=== PATIENT | female | born 1995 | race Hispanic/Latino ===

== ENCOUNTER 2020-04-30 17:05 | Emergency (ER) | payer SELFPAY ==
[2020-04-30 18:31] LABS: Absolute Lymphocytes (CBC) 2.5 K/uL (0.7-4.9); Basophils % 0.7 % (0-1.3); Hematocrit 37.6 % (36.0-45.0); Lymphocytes % 24.5 % (15.3-44.8); MPV 9.4 fL (7.6-11.3); RBC Red Blood Cell Count 4.14 M/uL (3.86-4.86)
[2020-04-30 18:40] LABS: Urine Blood 2+ (NEG); Urine Glucose NEGATIVE (NEG); Urine Protein NEGATIVE (NEG); Urine Specific Gravity >1.030 (1.005-1.030)
[2020-04-30 19:06] LABS: BUN Blood Urea Nitrogen 7 mg/dL (7-18); Bicarbonate 25 mmol/L (21-32); Glucose Level 83 mg/dL (74-106); HCG, Quantitative 95785 mIU/mL (1-3); Potassium 3.6 mmol/L (3.5-5.1); Sodium Level 137 mmol/L (136-145)
[2020-04-30 20:01] VITALS: BP 107/61; TEMP 98; O2SAT 98
--- NOTE | 2020-04-30 21:38 | ER ---
Nurse's Notes [facility] Name: Misty Melvin Age: 24 yrs Sex: Female : 1995 Arrival Date: 04/30/2020 Time: 17:08 Bed 13 Private MD: Diagnosis: Threatened Presentation: 04/30 17:12 Chief complaint: Patient states: LMP: Jun10. Found last week she was . G2, P0. ll1 Started vaginal bleeding today, + cramping. N/V this morning. Coronavirus screen: Patient denies a cough. Patient denies shortness of breath or difficulty breathing. Patient denies measured and/or subjective temperature greater than 100.4F prior to today's visit. Patient denies travel on a cruise ship or to a country the [facility] currently lists as an affected area. Patient denies contact with known and/or suspected case of COVID-19. Proceed with normal triage. Ebola Screen: Patient denies travel to an Ebola-affected area in the 21 days before illness onset. Initial Sepsis Screen: Does the patient meet any 2 criteria? No. Patient's initial sepsis screen is negative. Risk Assessment: Do you want to hurt yourself or someone else? Patient reports no desire to harm self or others. Onset of symptoms was April 30, 2020. 17:12 Method Of Arrival: Ambulatory ll1 17:12 Acuity: SUBHASH 3 ll1 19:38 Initial Sepsis Screen: Does the patient have a suspected source of infection? No. mt2 Patient's initial sepsis screen is negative. Triage Assessment: 19:39 General: Appears Behavior is calm, cooperative. 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 - Social history:: Smoking status: Patient denies any tobacco usage or history of. Patient/guardian denies using alcohol, street drugs. Screenin:45 Abuse screen: Denies threats or abuse. Denies injuries from another. Nutritional jr10 screening: No deficits noted. Tuberculosis screening: No symptoms or risk factors identified. Fall Risk No fall in past 12 months (0 pts). No secondary diagnosis (0 pts). IV access (20 points). Ambulatory Aid- None/Bed Rest/Nurse Assist (0 pts). Gait- Normal/Bed Rest/Wheelchair (0 pts) Mental Status- Oriented to own ability (0 pts). Assessment: 17:45 Obstetrical Assessment: General assessment: awake and alert, skin warm and dry, jr10 respirations even and unlabored. General:. Pain: Denies pain. Neuro: No deficits noted. Cardiovascular: No deficits noted. Respiratory: No deficits noted. GI: No deficits noted. : Reports vaginal bleeding that is bright red, spotty, since this morning, reports that she is currently "one month and a day" , denies clotting. Does report previous miscarriage. Reports that she had blood work and urine testing today and was told that she has chlamydia; reports that she was treated today for the STD. Appears in NAD. Derm: No deficits noted. Musculoskeletal: No deficits noted. 19:31 Reassessment: Patient and/or family updated on plan of care and expected duration. Pain mt2 level reassessed. Patient denies pain at this time. Vital Signs: 17:12 BP 121 / 70; Pulse 85; Resp 17; Temp 98.6; Pulse Ox 100% ; Weight 51.71 kg; Height 5 ll1 ft. 1 in. (154.94 cm); Pain 1/10; 18:00 BP 109 / 66; Pulse 79; Resp 18; Pulse Ox 100% ; jr10 19:31 BP 107 / 61; Pulse 63; Resp 16; Temp 98.0(O); Pulse Ox 98% ; Pain 0/10; mt2 17:12 Body Mass Index 21.54 (51.71 kg, 154.94 cm) ll1 Vitals: 19:38 Heart Tones unable to palpate. mt2 ED Course: 17:08 Patient arrived in ED. mr 17:12 Arm band placed on Patient placed in an exam room, on a stretcher. ll1 17:14 Triage completed. ll1 17:14 Gilles Oates PA is PHCP. [facility] 17:14 Doni King MD is Attending Physician. [facility] 17:16 Lawanda Adames, LUIS is Primary Nurse. jr10 17:45 Patient has correct armband on for positive identification. Placed in gown. Bed in low jr10 position. Call light in reach. Side rails up X 1. Pulse ox on. NIBP on. 17:55 Initial lab(s) drawn, by me, held in ED. Inserted saline lock: 20 gauge in right jp3 antecubital area, using aseptic technique. Blood collected. 17:55 Patient maintains SpO2 saturation greater than 95% on room air. jp3 18:25 No apparent distress. Resting quietly. Awaiting lab results. jr10 19:15 Primary Nurse role handed off by Lawanda Adames, LIUS mt2 19:15 Zehra Connelly, LUIS is Primary Nurse. mt2 19:32 No provider procedures requiring assistance completed. IV discontinued, intact, mt2 bleeding controlled, No redness/swelling at site. Pressure dressing applied. 22:14 US Pelvis Complete In Process Unspecified. EDMS Administered Medications: No medications were administered Point of Care Testing: Urine : 18:26 hCG Reading: Positive; Control Reading: Positive; jr10 Outcome: 19:06 Discharge ordered by . devyn 19:32 Discharged to home ambulatory. mt2 19:32 Condition: good 19:32 Discharge instructions given to patient, Instructed on discharge instructions, follow up and referral plans. Demonstrated understanding of instructions, follow-up care. 19:43 Patient left the ED. mt2 Signatures: Dispatcher [employer] EDMS Gilles Oates PA PA jmm Rivera, Mary Christian Van jp3 Nixon Cates RN RN ll1 Zehra Connelly RN RN mt2 Lawanda Adames, LUIS RN jr10 Corrections: (The following items were deleted from the chart) 19:37 19:31 BP 126 / 91; Pulse 63bpm; Resp 16bpm; Pulse Ox 98%; Temp 98.0F Oral; Pain 0/10; mt2 mt2
--- NOTE | 2020-04-30 21:39 | EDPHYS ---
Physician Documentation [facility] Name: Misty Melvin Age: 24 yrs Sex: Female : 1995 Arrival Date: 04/30/2020 Time: 17:08 Bed 13 Private MD: ED Physician Doni King HPI: 04/30 17:15 This 24 yrs old Female presents to ER via Ambulatory with complaints of jmm Vaginal Bleeding, + Preg <12wks. 17:15 The patient presents to the emergency department with vaginal bleeding. Associated jmm signs and symptoms: Pertinent positives: vaginal bleeding, Pertinent negatives: vomiting. This is a 24 year old female with no chronic medical conditions presents to the ED with vaginal bleeding beginning today with pelvic cramping. Denies fever, vomiting. . 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 - Social history:: Smoking status: Patient denies any tobacco usage or history of. Patient/guardian denies using alcohol, street drugs. ROS: 17:15 Constitutional: Negative for fever, chills, and weight loss, Cardiovascular: Negative jmm for chest pain, palpitations, and edema, Respiratory: Negative for shortness of breath, cough, wheezing, and pleuritic chest pain. 17:15 : Positive for vaginal bleeding. 17:15 All other systems are negative. Exam: 17:15 Constitutional: This is a well developed, well nourished patient who is awake, alert, jmm and in no acute distress. Head/Face: atraumatic. Eyes: EOMI, no conjunctival erythema appreciated ENT: Moist Mucus Membranes Neck: Trachea midline, Supple Chest/axilla: Normal chest wall appearance and motion. Cardiovascular: Regular rate and rhythm. No edema appreciated Respiratory: Normal respirations, no respiratory distress appreciated Abdomen/GI: Non distended, soft Back: Normal ROM Skin: General appearance color normal MS/ Extremity: Moves all extremities, no obvious deformities appreciated, no edema noted to the lower extremities Neuro: Awake and alert, normal gait Psych: Behavior is normal, Mood is normal, Patient is cooperative and pleasant Vital Signs: 17:12 BP 121 / 70; Pulse 85; Resp 17; Temp 98.6; Pulse Ox 100% ; Weight 51.71 kg; Height 5 ll1 ft. 1 in. (154.94 cm); Pain 1/10; 18:00 BP 109 / 66; Pulse 79; Resp 18; Pulse Ox 100% ; jr10 19:31 BP 107 / 61; Pulse 63; Resp 16; Temp 98.0(O); Pulse Ox 98% ; Pain 0/10; mt2 17:12 Body Mass Index 21.54 (51.71 kg, 154.94 cm) ll1 MDM: 17:29 Patient medically screened. [facility] 19:05 Data reviewed: vital signs, nurses notes. Counseling: I had a detailed discussion with devyn the patient and/or guardian regarding: the historical points, exam findings, and any diagnostic results supporting the discharge/admit diagnosis, lab results, radiology results, the need for outpatient follow up, to return to the emergency department if symptoms worsen or persist or if there are any questions or concerns that arise at home. ED course: Patient is alert and non toxic in appearance in the ED. Patient advised to follow up with pcp and otherwise given strict return precautions. Patient understood and agrees with the plan of care. . 04/30 17:15 Order name: Quantitative Hcg; Complete Time: 19: [facility] 04/30 17:15 Order name: Abo/rh Typing; Complete Time: 19: [facility] 04/30 17:15 Order name: Basic Metabolic Panel; Complete Time: 19: [facility] 04/30 17:15 Order name: CBC with Diff; Complete Time: 19: [facility] 04/30 18:19 Order name: Urine Dipstick--Ancillary (enter results); Complete Time: 19: [facility] 04/30 18:19 Order name: Urine --Ancillary (enter results); Complete Time: 19:04 [facility] 04/30 17:15 Order name: Urine Test (obtain specimen); Complete Time: 18:19 [facility] 04/30 17:15 Order name: IV Saline Lock; Complete Time: 18:00 [facility] 04/30 17:15 Order name: Labs collected and sent; Complete Time: 18:00 [facility] 04/30 17:15 Order name: NPO; Complete Time: 18:00 [facility] 04/30 17:15 Order name: Urine Dipstick-Ancillary (obtain specimen); Complete Time: 18:19 [facility] 04/30 18:07 Order name: US Pelvis Complete [facility] Administered Medications: No medications were administered Point of Care Testing: Urine : 18:26 hCG Reading: Positive; Control Reading: Positive; jr10 Disposition: 04/30/20 19:06 Discharged to Home. Impression: Threatened . - Condition is Stable. - Discharge Instructions: Threatened Miscarriage. - Medication Reconciliation Form, Thank You Letter, Antibiotic Education, Prescription Opioid Use, Work release form form. - Follow up: Private Physician; When: 2 - 3 days; Reason: Recheck today's complaints, Continuance of care, Re-evaluation by your physician. - Notes: return to work on 05/02/2020 No restrictions. Addendum: 05/02/2020 23:05 Co-signature as Attending Physician, Doni King MD. r n Signatures: Dispatcher [employer] EDMS Gilles Oates PA PA jmm Nieto, Roman, MD MD rn Lewis, Lynsay, RN RN ll1 Zehra Connelly RN RN mt2 Lawanda Adames RN RN jr10 Corrections: (The following items were deleted from the chart) 04/30 19:43 19:06 04/30/2020 19:06 Discharged to Home. Impression: Threatened . Condition mt2 is Stable. Forms are Medication Reconciliation Form, Thank You Letter, Antibiotic Education, Prescription Opioid Use. Follow up: Private Physician; When: 2 - 3 days; Reason: Recheck today's complaints, Continuance of care, Re-evaluation by your physician. [facility]
--- NOTE | 2020-04-30 22:26 | RAD REPORT ---
EXAM DESCRIPTION: US - Pelvis Complete - 04/30/2020 10:14 pm CLINICAL HISTORY: VAGINAL BLEEDING Pelvic pain COMPARISON: No comparisons FINDINGS: A single gestational sac is seen within the uterus. The shape of the sac is within normal limits for gestational age. Within the sac is a single pole with crown-rump length of 9 mm, cor relating to estimated gestational age of 6 weeks 6 days. Estimated date of delivery is 12/18/2020. Heart rate is 137 BPM. The placenta is not yet developed due to early gestational age. Small crescentic subchorionic bleed i s present measuring 17 x 13 mm. The maternal adnexa and ovaries are within normal limits. Normal Doppler blood flow was demonstrated to both ovaries. IMPRESSION: Single live early intrauterine gestation with estimated gestational age of 6 weeks 6 day s, CALLI 12/18/2020. Small subchorionic bleed.
--- OUTSIDE RECORDS SUMMARY | 2020-04-30 22:43 | XMS REPORT | Summary of Care ---
:1995 Author Organization [facility] - Health Address [address] [place] [address] Care Team Providers Name Role Phone Unavailable Primary Care Provider Unavailable Encounter Details Date Type Department Care Team Description 04/26/2020 Orders Only [facility] Doctor Unassigned, No [address] [facility] [place] [address] [address] [place] [address] Allergies No Known Allergiesdocumented as of this encounter (statuses as of 04/26/2020) Medications Medication Sig Dispensed Refills Start Date End Date Status Nitrofurantoin&Nit. Take 100 mg by 0 Active Macrocryst (MACROBID) mouth 2 (two) 100 mg times daily. capsuleIndications: Urinary tract infection, site not specified vitamin w/FA Take 1 Tab by 90 Tab 2 05/17/2015 Active (PRENATABS RX) mouth daily. 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 documented as of this encounter (statuses as of 04/26/2020) Resolved Problems Problem Noted Date Resolved Date PLANNING (Other general counseling and advice for 11/07/2014 05/17/2015 contraceptive management) Chlamydia trachomatis infection of lower genitourinary sites 11/07/2014 05/17/2015 Vaginitis and vulvovaginitis 08/09/2014 11/07/2014 Overview: ICD10 Diagnosis Term Hand Sprayer Utility Counseling and instruction in natural family planning to lexa id 08/09/2014 11/07/2014 documented as of this encounter (statuses as of 04/26/2020) Immunizations Name Administration Dates Next Due HEPATITIS A 07/28/2007 HPV 07/28/2007 Meningococcal Vaccine 07/28/2007 TDAP 10/05/2008 documented as of this encounter Social History Tobacco Use Types Packs/Day Years Used Date Never Smoker Smokeless Tobacco: Never Used Alcohol Use Drinks/Week oz/Week Comments Yes 0 Standard drinks or equivalent 0.0 socially Sex Assigned at Date Recorded Not on file Job Start Date Occupation Industry Not on file Not on file Not on file Travel History Travel Start Travel End No recent travel history available. documented as of this encounter Last Filed Vital Signs Not on filedocumented in this encounter Plan of Treatment Date Type Specialty Care Team Description 04/26/2020 Initial Visit [facility] Criss Leal, TELLER [address] [id number] 15 [phone] Health Maintenance Due Date Last Done Comments VARICELLA VACCINES (1 of 2 - 1995 2-dose childhood series) Depression Screening 2006 HPV VACCINES (2 - Female 2-dose 01/27/2008 07/28/2007 series) PAP SMEAR 2015 DTaP,Tdap,and Td Vaccines (2 - Td) 10/05/2018 10/05/2008 INFLUENZA VACCINE (#1) 2020 PNEUMOCOCCAL 0-64 YEARS COMBINED Aged Out No longer eligible based on SERIES patient's age to complete this topic documented as of this encounter Procedures Procedure Name Priority Date/Time Associated Diagnosis Comme nts ASSIGNMENT OF BENEFITS Routine 04/26/2020 9:07 AM CDT documented in this encounter Results Not on filedocumented in this encounter Insurance Payer Benefit Plan / Subscriber ID Effective Dates Phone Addre ss Type Group [employer] [id number] 2015-Present [employer] CHOICE documented as of this encounter
--- OUTSIDE RECORDS SUMMARY | 2020-04-30 22:43 | XMS REPORT | Summary of Care ---
:1995 [address] Organization [facility] Address [address] [place] [address] Care Team Providers Name Role Phone Samuel Leal Primary Care Provider Reason for Visit Reason Comments New OB Visit Encounter Details Date Type Department Care Team Description 04/26/2020 Initial [facility] RMP- Samuel Leal upervision of high risk , antepartum (Primary Dx); Visit AMBER Pickard History of miscarriage, currently pregna nt; [address] Primigrav nataly in first trimester; [address] Nausea and vomiting during faby or to 22 weeks [place] [id number] [phone] Allergies No Known Allergiesdocumented as of this encounter (statuses as of 04/26/2020) Medications Medication Sig Dispensed Refills Start Date End Date Status Nitrofurantoin&Nit Take 100 mg 0 Discontinued . Macrocryst by mouth 2 0 (MACROBID) 100 mg (two) times capsuleIndications daily. : Urinary tract infection, site not specified vitamin Take 1 Tab by 90 Tab 2 05/17/2015 04/26/20 2 Discontinued w/FA (PRENATABS mouth daily. 0 RX) tabletIndications: Supervision of other high-risk (V23.89) vit Take 1 Packet 30 Each 6 04/26/2020 Di scontinued 31-nfhz-jmgoj-dha by mouth 0 (E rror) (SELECT-OB + DHA) daily. 29 mg iron-1 mg -250 mg combo packIndications: Supervision of high risk , antepartum vit Take 1 Packet 30 Each 6 04/26/2020 Di scontinued 84-jnrn-tzkzm-dha by mouth 0 (E rror) (SELECT-OB + DHA) daily. 29 mg iron-1 mg -250 mg combo packIndications: Supervision of high risk , antepartum proMETHazine 25 mg Take 1 tablet 30 tablet 1 04/26/2020 Discontinued tabletIndications: by mouth 0 ( Error) Nausea and every 4 vomiting during (four) hours prior to as needed for 22 weeks gestation Nausea and Vomiting (N/V). 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 Estimated Date of Delivery Comments Yes 12/19/2020 documented as of this encounter (statuses as of 04/26/2020) Resolved Problems Problem Noted Date Resolved Date Urinary tract infection, site not specified 05/17/2015 04/26/2020 Chlamydia trachomatis infection of lower genitourinary sites 05/17/2015 04/26/2020 PLANNING (Other general counseling and advice for 11/07/2014 05/17/2015 contraceptive management) Chlamydia trachomatis infection of lower genitourinary sites 11/07/2014 05/17/2015 Vaginitis and vulvovaginitis 08/09/2014 11/07/2014 Overview: ICD10 Diagnosis 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 COVID-19 Exposure Response Date Recorded In the last month, have you been in contact with No / Unsure 04/26/2020 9:39 AM CDT someone who was confirmed or suspected to have Coronavirus / COVID-19? documented as of this encounter Last Filed Vital Signs Vital Sign Reading Time Taken Comments Blood Pressure 110/78 04/26/2020 9:43 AM CDT Pulse 73 04/26/2020 9:43 AM CDT Temperature 36.9 C (98.4 F) 04/26/2020 9:43 AM CDT Respiratory Rate 16 04/26/2020 9:43 AM CDT Oxygen Saturation - - Inhaled Oxygen Concentration - - Weight 51.9 kg (114 lb 7 oz) 04/26/2020 9:43 AM CDT Height 154.9 cm (5' 1") 04/26/2020 9:43 AM CDT Body Mass Index 21.62 04/26/2020 9:43 AM CDT documented in this encounter Patient Instructions Patient InstructionsSacha Calderon, LUIS - 04/26/2020 9:45 AM CDT Patient Education Prevention Guidelines,Women Ages 18 to 39 Screening tests and vaccines are an important part of managing your health. A screening test is doneto find possible disorders or diseases in people who don't have any symptoms. The goal is to find a disease early so lifestyle changes can be made and you can be watched more closely to reduce the riskof disease, or to detect it early enough to treat it most effectively. Screening tests are not considered diagnostic, but are used to determine if more testing is needed. Health counseling is essential, too. Below are guidelines for these, for women ages 18 to 39. Talk with your healthcare provider tomake sure youre up-to-date on what you need. Screening Who needs it How often Alcohol misuse All women in this age group At routine exams Blood pressure All women in this age group Yearly checkup if your blood pressure is normal Normal blood pressure is less than 120/80 mm Hg If your blood pressure reading is higher than normal, follow the advice of your healthcare provider Breast cancer All women in this age group should talk with their healthcare providers about the needfor clinical breast exams (CBE)1 Clinical breast exam every 3 years1 Cervical cancer Women ages 21 and older Women between ages 21 and 29 should have a Pap test every 3 years; women between ages 30 and 65 are advised to have a Pap test plus an HPV test every 5 years Chlamydia Sexually active women ages 25 and younger, and women at increased risk for infection (suchas having multiple sex partners) Every year if you're at risk or have symptoms Depression All women in this age group At routine exams Type 2 diabetes, prediabetes All women with no symptoms who are overweight or obese and have 1 or more other risk factors for diabetes At least every 3 years. Also, testing for diabetes during after the 24th week. Type 2 diabetes, prediabetes All women diagnosed with gestational diabetes Lifelong testing every 3 years Type 2 diabetes All women with prediabetes Every year Gonorrhea Sexually active women at increased risk for infection At routine exams Hepatitis C Anyone at increased risk At routine exams HIV All women should be tested at least once for HIV between the ages of 13 and 64 At routine exams.Those with risk factors for HIV should be tested at least annually. Obesity All women in this age group At routine exams Syphilis Women at increased risk for infection should talk with their healthcare provider At routineexams Tuberculosis Women at increased risk for infection should talk with their healthcare provider Ask your healthcare provider Vision All women in this age group At least 1 complete exam in your 20s, and 2 in your 30s Vaccine2 Who needs it How often Chickenpox (varicella) All women in this age group who have no record of this infection or vaccine 2doses; the second dose should be given 4 to 8 weeks after the first dose Hepatitis A Women at increased risk for infection should talk with their healthcare provider 2 dosesgiven at least 6 months apart Hepatitis B Women at increased risk for infection should talk with their healthcare provider 3 dosesover 6 months; second dose should be given 1 month after the first dose; the third dose should be given at least 2 months after the second dose and at least 4 months after the first dose Haemophilus influenzaeType B (HIB) Women at increased risk for infection should talk with their healthcare provider 1 to 3 doses Human papillomavirus (HPV) All women in this age group up to age 26 3 doses; the second dose should be given 1 to 2 months after the first dose and the third dose given 6 months after the first dose Influenza (flu) All women in this age group Once a year Measles, mumps, rubella (MMR) All women in this age group who have no record of these infections or vaccines 1 or 2 doses Meningococcal Women at increased risk for infection should talk with their healthcare provider 1 or more doses Pneumococcal conjugate vaccine (PCV13)and pneumococcal polysaccharidevaccine(PPSV23) Women at increased risk for infection should talk with their healthcare provider PCV13: 1 dose ages 19 to 65 (protects against 13 types of pneumococcal bacteria) PPSV23: 1 to2 doses through age 64, or 1 dose at 65 or older (protects against 23 types of pneumococcal bacteria) Tetanus/diphtheria/pertussis (Td/Tdap) booster All women in this age group Td every 10 years, or a one-time dose of Tdap instead of a Td booster after age 18, then Td every 10 years Counseling Who needs it How often BRCA gene mutation testing for breast and ovarian cancer susceptibility Women with increased risk for having gene mutation When your risk is known Breast cancer and chemoprevention Women at high risk for breast cancer When your risk is known Diet and exercise Women who are overweight or obese When diagnosed, and then at routine exams Domestic violence Women at the age in which they are able to have children At routine exams Sexually transmitted infection prevention Women who are sexually active At routine exams Skin cancer Prevention of skin cancer in fair-skinned adults At routine exams Use of tobacco and the health effects it can cause All women in this age group Every visit 1 According to the ACS, women ages 20 to 39 years should have a clinical breast exam (CBE) as part of their routine health exam every 3 years. Breast self-exams are an option for women starting in their 20s.But the USPSTF does not recommend CBE. [employer] last reviewed this educational content on 07/05/201719995467-5719 [employer]. [address] [place] [address], [place] [address]. All rights reserved. This information is not intended as a substitute for professional medical care. Always follow your healthcare professional's instructions. Patient Education Understanding STIs When it comes to sex, nothing is risk-free. Any sexual contact with the penis, vagina, anus, or mouth can spread a sexually transmitted infection (STI). These include chlamydia, gonorrhea, herpes, HIV,and genital warts. STIs are also known as sexually transmitted diseases (STDs). The only sure way toprevent STIs is not having sex (abstinence). But there are ways to make sex safer. Use a latex condom each time you have sex. And choose your partner wisely. Use condoms for safer sex If you have sex, latex condoms provide the best protection against STIs. Latex condoms stop the exchange of body fluids that carry certain STIs. They also limit contact with affected skin. Be aware that a condom doesnt cover all skin. So affected skin that isn't covered can still transfer disease. But youre safer with a condom than without one. Use a condom even if you use other control. control methods such as the pill or IUD help prevent , but they don't protect against STIs. Choose the right condom Condoms made of latex prevent disease best. If youre allergic to latex, use polyurethane condoms instead. Male condoms fit over the penis. Female condoms line the vagina. Before buying a condom, read the label to be sure it prevents disease. Some novelty condoms dont. The right lubricant helps Buy lubricated condoms or use lubricant. This provides greater comfort and reduces the risk for condom breakage. Use only water-based lubricants. Dont use oil, lotion, or petroleum jelly. They can weaken the condom, causing breakage. Also, you may want to choose lubricants without nonoxynol-9. This spermicide may cause irritation. It can raise the risk for certain STIs. Use condoms correctly For condoms to work, they must be used the right way. Keep these tips in mind: Use a new latex condom each time you have sex. Slip the condom on the penis before any contact ismade. When ready to withdraw, hold the rim of the condom as the penis pulls out. This prevents the condom from slipping off. Check the expiration date before using a condom. Dont store condoms in places that can get hot, such as a car or a wallet that is carried in a back pocket. Get to know your partner Safer sex is a process. It involves getting to know your partner and making informed choices. Ask each other how many partners you have had in the past, and how many you have now. Find out if either ofyou has HIV or any other STI. If you decide to have sex, use a condom each time. Dont stop using condoms unless youre sure neither of you has other partners and youve both been tested to confirm you dont have HIV or other STIs. Then stay free of disease by having sex only with each other (monogamy). Keep your cool Dont let alcohol or drugs cloud your judgment. They could lead you to have sex with someone you wouldnt have chosen if you were sober. Or you might forget to use a condom. If you do plan to have sex, keep a latex condom with you. Dont wait until youre in the heat of passion to try to find one. Consider abstinence The only way to be sure you wont get an STI is to abstain from sex. Abstinence is a choice that many people make at some point in their life. Maybe you want to wait until you are sure youre readybefore you have sex. Maybe youd like a break from the responsibilities of sex for a while. Or maybe you just want to know your partner better before taking the next step. Abstinence is a choice you can make now to protect your future. [employer] last reviewed this educational content on 09/04/201819990305-4490 [employer]. [address] [place] [address], [place] [address]. All rights reserved. This information is not intended as a substitute for professional medical care. Always follow your healthcare professional's instructions. Patient Education Understanding HIV and AIDS It's important to know how HIV can get into your body and what happens once its there. Then youll be better prepared to protect yourself or others against this virus. A person with HIV can look and feel perfectly healthy. But that person can give HIV to others as soon as he or she is infected with the virus. Having unsafe or unprotected sex or sharing needles puts you at risk for HIV. Talk with your healthcare provider about ways to protect yourself or a loved one from getting HIV. How HIV infection progresses After HIV enters the body, it attacks the immune system in the stages below. A person with HIV can infect others once the virus gets into the blood. HIV with no symptoms. A person with HIV may have no symptoms for years. The only sign of infection may be a positive blood test for HIV 2 weeks to 3 months or later after HIV enters the body. HIV with symptoms. Some people develop an illness similar to mono (mononucleosis) 2 to 4 weeks after the virus enters the body. This is called acute retroviral syndrome. Symptoms may include swollen lymph glands, chills, fever, night sweats, weakness, weight loss, skin rashes, mouth ulcers, or sore t hroat. Symptoms may be mild or the person can feel quite sick. Even without treatment the symptoms almost always go away in a few days or up to 2 to 3 weeks. Then the person has no symptoms, often for years. But over time the immune system starts to get weaker and symptoms start appearing. People at this stage may have a yeast infection in the mouth (oral thrush), shingles, skin problems, pneumonia, diarrhea that keeps coming back, or weight loss. AIDS. AIDS is the most advanced stage of HIV infection, when the immune system is severely weakened.Certain rare diseases and cancers that normally would not occur, now can occur because the body can no longer fight them well enough. It is often these diseases that cause in people with AIDS. HIV may also directly attack the brain and nervous system. This causes seizures and loss of memory and body movement. It also affects many other parts of the body. This leads to problems such as anemia, low white blood cell count, diarrhea, belly pain, skin problems, and many others. How HIV enters the body HIV is carried in semen, vaginal fluid, blood, and breastmilk. During sex, HIV can enter the body. It gets in through the fragile tissue and linings, sores, or cuts in or around the vagina, penis, anus, and mouth. During drug use, tattooing, or body piercing, the virus can enter the blood through an infected needle. A mother who has HIV can infect her child during , childbirth, and . [employer] last reviewed this educational content on 03/05/201919990021-7360 [employer]. [address] [place] [address], [place] [address]. All rights reserved. This information is not intended as a substitute for professional medical care. Always follow your healthcare professional's instructions. Patient Education Clinical Breast Exam Many health organizations recommend a yearly clinical breast exam. This exam may be done by a chemist inorganic, family healthcare provider, nurse practitioner, nurse mat inspector, or specially trained nurse. Yearly breast exams help tomake surethat breast conditions are found early. Your healthcare providers role A healthcare professional knows the tests and follow-up care needed if a problem is found. Your clinical exam is also a great time to ask questions about breast self-exams. You can find out if yourechecking your breasts in the best way. Or you may want to ask how , breast implants, or breast reduction surgery affect the way you should check your breasts. Diagnostic tests If a clinical exam reveals a breast change, you may have other tests to find out more. These tests may include: Mammography. A low-dose X-ray of your breast tissue. Ultrasound. An imaging test that uses sound waves to create images of your breast. Biopsy. A small amount of breast tissue is removed by needle or by a cut (incision). The tissue is then checked under a microscope. Guidelines for having clinical breast exams The [employer] recommends that starting at age 29, you should have a clinical breast exam every 1 to 3 years. After age 40, have a clinical breast exam each year. If youre at higher risk for breast cancer, you may need exams more often. Risk factors for breast cancer may include: Being over 50 or postmenopausal Having a family history of breast cancer Having the BRCA1 or BRCA2 gene mutation or certain other gene mutations Having more menstrual periods due to starting menstruation early(before age 12) or having a late menopause (after age 55) Having no pregnancies Having a first after age 30 Being obese Having a history of radiation treatment to your chest area Exposure to ROSEMARY during your mother's Not being active Drinking too much alcohol Having dense breast tissue Taking hormone therapy after menopause Other health organizations have different recommendations. Talk with your healthcare provider about what is best for you. [employer] last reviewed this educational content on 05/05/201719993338-2992 [employer]. [address] [place] [address], [place] [address]. All rights reserved. This information is not intended as a substitute for professional medical care. Always follow your healthcare professional's instructions. Patient Education Breast Health: Breast Self-Awareness What is breast self-awareness? Breast self-awareness is knowing how your breasts normally look and feel. Your breasts change as yougo through different stages of your life. So its important to learn what is normal for your breasts. Knowing about your breasts helps you spot any changes in them right away. Tell your healthcare provider about any changes. Why is breast self-awareness important? Many experts now say that women should focus on breast self-awareness instead of doing a breast self-examination (BSE). These experts include the [employer] and the [employer]. Some experts even advise not teaching women to do a BSE. Thats because research hasnt shown a clear benefit to doing BSEs. Breast self-awareness is different than a BSE. It isnt about following a certain method and schedule. Its about knowing what's normal for your breasts. That way you can spot even small changes right away. If you see any changes, tell your healthcare provider. Changes to look for Call your healthcare provider if you find any changes in your breasts that worry you. These changes may be: A lump Nipple discharge other than breastmilk, especially if it's bloody Swelling A change in size or shape Skin changes, such as redness, thickening, or dimpling of the skin Swollen lymph nodes in the armpit Nipple problems, such as pain or redness If you find a lump Call your provider if you find lumpiness in one breast. Also call if you feel something different inthe tissue or feel a definite lump. Sometimes lumpiness may be due to menstrual changes. But there may be reason for concern. Your provider may want to see you right away if you have: Nipple discharge that is bloody Skin changes on your breast, such as dimpling or puckering Its okay to be upset if you find a lump. Be sure to call your provider right away. Remember that most breast lumps are benign. This means they are not cancer. [employer] last reviewed this educational content on 05/05/201719996053-8289 [employer]. [address] [place] [address], [place] [address]. All rights reserved. This information is not intended as a substitute for professional medical care. Always follow your healthcare professional's instructions. Patient Education Understanding USDA MyPlate The USDA (U.S. Department of Agriculture) has guidelines to help you make healthy food choices. These are called MyPlate. MyPlate shows the food groups that make up healthy meals using the image of a place setting. Before you eat, think about the healthiest choices for what to put onto your plate or into your cup or bowl. To learn more about building a healthy plate, visit www.choosemyplate.gov. The food groups Fruits. Any fruit or 100% fruit juice counts as part of the Fruit Group. Fruits may be fresh, canned, frozen, or dried, and may be whole, cut-up, or pureed. Make half your plate fruits and vegetables. Vegetables. Any vegetable or 100% vegetable juice counts as a member of the Vegetable Group. Vegetables may be fresh, frozen, canned, or dried. They can be served raw or cooked and may be whole, cut-up, or mashed. Make half your plate fruits and vegetables. Grains. All foods made from grains are part of the Grains Group. These include wheat, rice, oats,cornmeal, and barley such as bread, pasta, oatmeal, cereal, tortillas, and grits. Grains should be no more than a quarter of your plate. At least half of your grains should be whole grains. Protein. This group includes meat, poultry, seafood, beans and peas, eggs, processed soy products(like tofu), nuts (including nut butters), and seeds. Make protein choices no more than a quarter ofyour plate. Meat and poultry choices should be lean or low fat. Dairy. All fluid milk products and foods made from milk that contain calcium, like yogurt and cheese, are part of the Dairy Group. (Foods that have little calcium, such as cream, butter, and cream cheese, are not part of the group.) Most dairy choices should be low-fat or fat-free. Oils. These are fats that are liquid at room temperature. They include canola, corn, olive, soybean, and sunflower oil. Foods that are mainly oil include mayonnaise, certain salad dressings, and soft margarines. You should have only 5 to 7 teaspoons of oils a day. You probably already get this muchfrom the food you eat. [employer] last reviewed this educational content on 05/05/201719995519-8242 [employer]. [address] [place] [address]. All rights reserved. This information is not intended as a substitute for professional medical care. Always follow your healthcare professional's instructions. documented in this encounter [employer] Leal, Roshunda R, WOOD VENEER TAPER - 04/26/2020 9:45 AM CDT Chief complaint: Chief Complaint Patient presents with New OB Visit HPI CC: Initial Visit Misty Melvin is a 24 year old, , /White female. Patient's last menstrual period was 03/14/2020 (approximate). She is 6w1d with an intrauterine . Her Estimated Date of Delivery: 12/19/20. She is being seen today for her first obstetrical visit. Patient complains of nausea andvomiting. .Patient denies current or past physical, sexual or emotional abuse. OB History Para Term AB Living 2 1 SAB TAB Ectopic Multiple Live Births 1 # Outcome Date GA Lbr Wilmar/2nd Weight Sex Delivery Anes PTL Lv 2 Current 1 SAB Histories OB History Para Term AB Living 2 1 SAB TAB Ectopic Multiple Live Births 1 # Outcome Date GA Lbr Wilmar/2nd Weight Sex Delivery Anes PTL Lv 2 Current 1 SAB Past Medical History: Diagnosis Date Chlamydia trachomatis infection of lower genitourinary sites 11/07/2014 STD (sexually transmitted disease) 2014 Chlamydia Vaginitis and vulvovaginitis, unspecified 08/09/2014 Family History Problem Relation Age of Onset Arthritis NoFHx Asthma NoFHx defects NoFHx Colon Cancer NoFHx Breast Cancer NoFHx Ovarian Cancer NoFHx Cancer NoFHx Uterine Cancer NoFHx Depression NoFHx Diabetes NoFHx Genetic NoFHx Heart NoFHx Hypertension NoFHx High cholesterol NoFHx Mental retardation NoFHx Neurological NoFHx Osteoporosis NoFHx Psychiatry NoFHx Other - see comments NoFHx Family Status Relation Name Status NoFHx (Not Specified) History reviewed. No pertinent surgical history. Social History Socioeconomic History Marital status: Single Spouse name: Not on file Number of children: Not on file Years of education: Not on file Highest education level: Not on file Occupational History Not on file Social Needs Financial resource strain: Not on file Food insecurity: Worry: Not on file Inability: Not on file Transportation needs: Medical: Not on file Non-medical: Not on file Tobacco Use Smoking status: Never Smoker Smokeless tobacco: Never Used Substance and Sexual Activity Alcohol use: Yes Alcohol/week: 0.0 standard drinks Comment: socially Drug use: No Sexual activity: Yes Partners: Male control/protection: None Comment: Last sexual intercourse 04/19/2020 Lifestyle Physical activity: Days per week: Not on file Minutes per session: Not on file Stress: Not on file Relationships Social connections: Talks on phone: Not on file Gets together: Not on file Attends yarsanism service: Not on file Active member of club or organization: Not on file Attends meetings of clubs or organizations: Not on file Relationship status: Not on file Intimate partner violence: Fear of current or ex partner: Not on file Emotionally abused: Not on file Physically abused: Not on file Forced sexual activity: Not on file Other Topics Concern Not on file Social History Narrative Pt lives with boyfriend. Family has a dog. Patient denies any violence or domestic abuse. Social History Substance and Sexual Activity Sexual Activity Yes Partners: Male control/protection: None Comment: Last sexual intercourse 04/19/2020 Genetic Screen Autism / Mental Retardation: No Marcelino Disease: No Congenital Heart Defect: No Cystic Fibrosis: No Down Syndrome: No Familial Dysautonomia: No Hemophilia or other Blood Disorders: No Rubia Chorea: No Maternal Metabolic Disorder--specify (eg. Type 1 Diabetes, PKU): No Muscular Dystrophy: No Neural Tube Defect: No Recurrent Loss or a Stillbirth: No Sickle Cell Disease or Trait: No Nhan Sachs: No Teratological Substances (specify type & strength/dose) since LMP: No Thalassemia: No Other Inherited Genetic or Chromosomal Disorder (specify): No No Significant History of Genetic Disorders: No Significant History of Genetic Disorders Labs Labs are pending. Radiology No new radiology. Allergies Misty has No Known Allergies. Medications Misty currently has no medications in their medication list. Review of Systems Constitutional: Negative for activity change, appetite change, fatigue, unexpected weight change, weight gain and weight loss. HENT: Negative for sore throat. Eyes: Negative for visual disturbance. Respiratory: Negative for cough and shortness of breath. Breasts: Negative for discharge, mass, pain and unequal size. Cardiovascular: Negative for chest pain, palpitations and leg swelling. Gastrointestinal: Positive for nausea and vomiting. Negative for abdominal pain, anal bleeding, blood in stool, constipation, diarrhea and rectal pain. Genitourinary: Negative for bladder incontinence, dysuria, urgency, flank pain, vaginal bleeding, vaginal discharge, genital sores, vaginal pain and pelvic pain. Skin: Negative for color change and rash. Neurological: Negative. Negative for dizziness, syncope and headaches. Psychiatric/Behavioral: Negative for confusion, self-injury and sleep disturbance. The patient is not nervous/anxious. Hematological: Negative for cold intolerance and heat intolerance. Endocrine: Negative for hair loss, cold intolerance, heat intolerance, weight gain and weight loss. BP 110/78 (BP Location: Right arm, Patient Position: Sitting, BP CUFF SIZE: Adult Medium) | Pulse 73 | Temp 36.9 C (98.4 F) (Oral) | Resp 16 | Ht 5' 1" (1.549 m) | Wt 114 lb 7 oz (51.9 kg) | LMP 03/14/2020 (Approximate) | BMI 21.62 kg/m Pregravid BMI: 21.6 Physical Exam Vitals reviewed. Constitutional: She is oriented to person, place, and time. She appears well- developed, well-nourished and well-groomed. She has no deformities. Neck: No tenderness and no mass. No thyroid nodules and no thyromegaly palpated. Cardiovascular: Regular rate and rhythm. No murmur auscultated. Pulmonary/Chest: Breath sounds clear to auscultation. Normal inspiratory effort. Abdominal: Abdomen is soft. No mass palpated. No tenderness present. There is no guarding. Neuro/Psychiatric: She has a normal mood and affect. She is oriented to person, place, and time. Skin: Skin normal. No lesion and no rash present. Breast: Right breast exhibits no mass, no nipple discharge and no tenderness. Left breast exhibits no mass, no nipple discharge and no tenderness. Normal left breast and normal right breast Rectal: normal rectum External genitalia: Normal external genitalia appropriate for age. Normal hair distribution. No labial lesion. 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 No lesion inspected. No abnormal vaginal discharge found. Cervix: Normal cervix. No lesion. No tenderness and no discharge present. Uterus: Uterus is normal size and non-tender. 6cm Normal uterus Adnexa: Right adnexa without tenderness or mass. Left adnexa without tenderness or mass. Normal leftadnexa and normal right adnexa Anus/perineum: Normal perineum. PHYSICAL: General Exam: HEENT: Normal Thyroid: Normal Lymph Node: Normal Neurological: Normal Abdomen: Normal Skin: Normal Extremities: Normal Pelvic Exam: Vulva: Normal Vagina: Normal Cervix: Normal 6cm Uterus: 6cm Weeks Adnexa: Normal Spines: Average Sacrum: Concave Subpubic Arch: Normal Assessment/Plan Supervision of high risk , antepartum (primary encounter diagnosis) History of miscarriage, currently Primigravida in first trimester Comment: Routine Initial NOB Plan: POCT URINALYSIS W SPECIFIC GRAVITY, POCT TEST, POCT URINALYSIS W SPECIFIC GRAVITY, GLUCOSE 1 HOUR POST PRANDIAL, PAP Smear-Liquid Based, CBC WITH DIFF, GC & CHLAMYDIA AMPLIFIED ASSAY, HEPATITIS B SURFACE ANTIGEN, HIV 1/2 AG-AB WITH REFLEX, POCT URINALYSIS W SPECIFIC GRAVITY, WORKUP, BLOOD BANK, RUBELLA SCREEN (KATE) IGG, GALV ONLY - SYPHILIS IGG/IGM, URINE CULTURE, VZV ANTIBODY SCREEN, WORKUP, BLOOD BANK, GLUCOSE 1 HOUR POST PRANDIAL, PAP Smear-Liquid Based, CBC WITH DIFF, GC & CHLAMYDIA AMPLIFIED ASSAY, HEPATITIS B SURFACE ANTIGEN, HIV 1/2 AG-AB WITH REFLEX, RUBELLA SCREEN (KATE) IGG, GALV ONLY - SYPHILIS IGG/IGM, URINE CULTURE, VZV ANTIBODY SCREEN, DISCONTINUED: vit 76-tzkc-fonlu-dha (SELECT-OB + DHA) 29 mg iron-1 mg -250 mg combo pack, DISCONTINUED: vit 69-uzmn-ouobk-dha (SELECT-OB + DHA) 29 mg iron-1 mg -250 mg combo pack, CANCELED: CONSULT MATERNAL MEDICINE ULTRASOUND Preferred Location: [place] Denies zika virus risk, signs and symptoms such as fever,rash,joint pain, conjunctivitis (red eyes), muscle pain, headaches; outside [place] travel to areas affected by zika, and FOB exposure to zika.Educated on use of mosquito repellent. Covid x12 screening done, screening results are negative. Nausea and vomiting during prior to 22 weeks gestation Comment: patient complains of symptoms, rescources given for relief Plan: DISCONTINUED: proMETHazine 25 mg tablet Return to clinic in 4 weeks. Discussed treatment options. Medications as ordered. Reviewed patient instructions and provided printed copy. This visit did not involve counseling and coordination that comprised more than 50% of the visit time. AMBER Wilson 04/26/2020 11:46 AM Sacha Calderon RN - 04/26/2020 9:45 AM CDTPatient is 24 year old female here for current . Patient is . 1) Previous delivery methods N/a 2) Patient is mild experiencing cramping 3) Patient is not experiencing bleeding. 4) LMP 03/14/2020 5) Last Pap was: N/a Results: none 6) Have you had a flu vaccine this season? no 7) PPD candidate? no 8) Patient complains of Nausea. 9) Patient denies history of physical, emotional, or sexual abuse. Patient states she currently feels safe at home. documented in this encounter Plan of Treatment Date Type Specialty Care Team Description 05/24/2020 Routine Visit OB Satellites Criss Leal FNP [address] [address] [phone] Name Type Priority Associated Diagnoses Date/Ti me GLUCOSE 1 HOUR POST LAB Routine Supervision of high r isk 04/26/2020 11:00 AM CDT PRANDIAL , antepartum PAP Smear-Liquid Based LAB Routine Supervision of hig h risk 04/26/2020 11:00 AM CDT , antepartum CBC WITH DIFF LAB Routine Supervision of high risk 11:00 AM CDT , antepartum GC & CHLAMYDIA LAB Routine Supervision of high risk 0 04/26/2020 11:00 AM CDT AMPLIFIED ASSAY , antepartum HEPATITIS B SURFACE LAB Routine Supervision of high r isk 04/26/2020 11:00 AM CDT ANTIGEN , antepartum HIV 1/2 AG-AB WITH LAB Routine Supervision of high ri sk 04/26/2020 11:00 AM CDT REFLEX , antepartum RUBELLA SCREEN (KATE) LAB Routine Supervision of hig h risk 04/26/2020 11:00 AM CDT IGG , antepartum GALV ONLY - SYPHILIS LAB Routine Supervision of high risk 04/26/2020 11:00 AM CDT IGG/IGM , antepartum URINE CULTURE LAB Routine Supervision of high risk 11:00 AM CDT , antepartum VZV ANTIBODY SCREEN LAB Routine Supervision of high r isk 04/26/2020 11:00 AM CDT , antepartum Name Type Priority Associated Diagnoses Order S chedule POCT URINALYSIS W LAB Routine Supervision of high ris k 20 Occurrences starting SPECIFIC GRAVITY , antepartum until 02/20/2021, 1 c ompleted GLUCOSE 1 HOUR POST LAB Routine Supervision of high r isk Expected: 04/26/2020, PRANDIAL , antepartum s: 04/26/2021 PAP Smear-Liquid Based LAB Routine Supervision of hig h risk Expected: 04/26/2020, , antepartum s: 04/26/2021 CBC WITH DIFF LAB Routine Supervision of high risk Ex pected: 04/26/2020, , antepartum s: 04/26/2021 GC & CHLAMYDIA LAB Routine Supervision of high risk E xpected: 04/26/2020, AMPLIFIED ASSAY , antepartum Exp ires: 04/26/2021 HEPATITIS B SURFACE LAB Routine Supervision of high r isk Expected: 04/26/2020, ANTIGEN , antepartum s: 04/26/2021 HIV 1/2 AG-AB WITH LAB Routine Supervision of high ri sk Expected: 04/26/2020, REFLEX , antepartum s: 04/26/2021 POCT URINALYSIS W LAB Routine Supervision of high ris k 20 Occurrences starting SPECIFIC GRAVITY , antepartum until 02/20/2021 WORKUP, BLOOD LAB Routine Supervision of hig h risk Expected: 04/26/2020, BANK , antepartum s: 04/26/2021 RUBELLA SCREEN (KATE) LAB Routine Supervision of hig h risk Expected: 04/26/2020, IGG , antepartum s: 04/26/2021 GALV ONLY - SYPHILIS LAB Routine Supervision of high risk Expected: 04/26/2020, IGG/IGM , antepartum s: 04/26/2021 URINE CULTURE LAB Routine Supervision of high risk Ex pected: 04/26/2020, , antepartum s: 04/26/2021 VZV ANTIBODY SCREEN LAB Routine Supervision of high r isk Expected: 04/26/2020, , antepartum s: 04/26/2021 Health Maintenance Due Date Last Done Comments PAP SMEAR 2015 INFLUENZA VACCINE (#1) 2020 HPV VACCINES (2 - Female 04/17/2021 07/28/2007 Postpon ed from 01/27/2008 2-dose series) ( or ) DTaP,Tdap,and Td Vaccines (2 04/26/2021 10/05/2008 Pos tponed from 10/05/2018 - Td) (Alternative Gomez delines) Depression Screening 04/26/2021 04/26/2020, 04/26/2020 VARICELLA VACCINES (1 of 2 - 04/26/2021 Pos tponed from 1995 2-dose childhood series) (Pregna nt or ) PNEUMOCOCCAL 0-64 YEARS Aged Out No longe r eligible based COMBINED SERIES on patient's age to complete this to [facility] documented as of this encounter Procedures Procedure Name Priority Date/Time Associated Diagnosis Comme nts POCT TEST Routine 04/26/2020 9:42 Supervision of hi gh Results for this AM CDT risk , procedure ar e in antepartum the results section. POCT URINALYSIS Routine 04/26/2020 9:41 Supervision of high R esults for this AM CDT risk , procedure ar e in antepartum the results section. documented in this encounter Results POCT TEST (04/26/2020 9:42 AM CDT) Pathologist Sig nature POCT PREG Positive On board controls acceptable Yes with C Line POCT PREG LOT # POCT PREG TEST DATE Specimen Urine - URINE, CLEAN CATCH POCT URINALYSIS W SPECIFIC GRAVITY (04/26/2020 9:41 AM CDT) Pathologist Sig nature POCT U SP GRAV . 1.005 - 1.025 mg/dl POCT PH U 6 5 - 8 mg/dl POCT U LEUK EST 2+ Negative - Negative POCT U NIT negative Negative - Negative POCT U PROT 2+ Negative - Negative POCT U GLU negative Negative - Negative POCT U KETONE large Negative - Negative POCT U UROBILI . 0.2 - 1 mg/dl POCT U BILI . Negative - Negative POCT U BLD large Negative - Negative POCT U COLOR POCT U APPEAR Specimen Urine - URINE, CLEAN CATCH documented in this encounter Visit Diagnoses Diagnosis Supervision of high risk , ante - Primary History of miscarriage, currently pregna nt Primigravida in first trimester Nausea and vomiting during faby or to 22 weeks gestation documented in this encounter Insurance Payer Benefit Plan Subscriber ID Effective Dates Phone Address Type / Group MEDICAID CHIP TA PENDING [address] [address] documented as of this encounter
--- OUTSIDE RECORDS SUMMARY | 2020-04-30 22:43 | XMS REPORT | Summary of Care ---
:1995 Author Organization [facility] Address [address] [place] [address] Care Team Providers Name Role Phone Samuel Leal Primary Care Provider Reason for Visit Reason Comments New OB Visit Encounter Details Date Type Department Care Team Description 04/26/2020 Initial [facility] RMP- Samuel Leal upervision of high risk , antepartum (Primary Dx); Visit AMBER Pickard History of miscarriage, currently pregna nt; [address] [place] [address] Primigrav nataly in first trimester; [address] [place] Nausea and vomiting during faby or to 22 weeks gestation; [place], [place] Screening for v iral disease [id number] [phone] Allergies No Known Allergiesdocumented as of this [...] Packet 30 Each 6 04/26/2020 Di scontinued 68-gfmj-ajwis-dha by mouth 0 (E rror) (SELECT-OB + DHA) daily. 29 mg iron-1 mg -250 mg combo packIndications: Supervision of high risk , antepartum vit Take 1 Packet 30 Each 6 04/26/2020 Di scontinued 07-tajy-bzydn-dha by mouth 0 (E rror) (SELECT-OB + [...] Incomplete spontaneous 06/29/2015 Overview: ICD10 Diagnosis Term Associate Marketing Manager Utility Susceptible to varicella (non-immune), currently pregn ant 06/14/2015 Overview: Give pp Supervision of high risk , antepartum 015 Overview: ICD10 Diagnosis Term Associate Marketing Manager Utility Estimated Date of Delivery Comments Yes [...] vulvovaginitis 08/09/2014 11/07/2014 Overview: ICD10 Diagnosis Term Associate Marketing Manager Utility Counseling and instruction in natural family [...] 20s.But the USPSTF does not recommend CBE. [employer] last reviewed this educational content on 07/05/201719993462-9453 [employer]. [address] [place] [address]. All rights reserved. This information is not [...] can make now to protect your future. [employer] last reviewed this educational content on 09/04/201819992328-4833 [employer]. [address] [place] [address], [place] [address]. All rights reserved. This information is not [...] her child during , childbirth, and . [employer] last reviewed this educational content on 03/05/201919990599-1010 [employer], [employer]. [address] [place] [address], [place] [address]. All rights reserved. This information is not intended as a substitute for professional medical care. Always follow your healthcare professional's instructions. Patient Education Clinical Breast Exam Many health organizations recommend a yearly clinical breast exam. This exam may be done by a grain inspector, family healthcare provider, nurse practitioner, nurse operating room scheduler, or specially trained nurse. Yearly breast exams [...] Guidelines for having clinical breast exams The [employer] College of Obstetricians and Gynecologists recommends that [...] provider about what is best for you. [email or web address] last reviewed this educational content on 05/05/201719991198-4342 [employer]. [address] [place] [address], [place] [address]. All rights reserved. This information is not [...] breast self-examination (BSE). These experts include the [employer] Society and the [employer] Congress of Obstetricians and Gynecologists. Some experts [...] benign. This means they are not cancer. [email or web address] last reviewed this educational content on 05/05/201719990952-7511 [employer]. [address] [place] [address], [place] [address]. All rights reserved. This information is not [...] get this muchfrom the food you eat. [employer] last reviewed this educational content on 05/05/201719999441-4930 [employer]. [address] [place] [address], [place] [address]. All rights reserved. This information is not intended as a substitute for professional medical care. Always follow your healthcare professional's instructions. documented in this encounter Progress Notes Samuel Leal, FURNACE REPAIR MECHANIC - 04/26/2020 9:45 AM CDT Chief complaint: [...] file Gets together: Not on file Attends muslim service: Not on file Active member of [...] No Hemophilia or other Blood Disorders: No [place] Chorea: No Maternal Metabolic Disorder--specify (eg. Type [...] age. Normal hair distribution. No labial lesion. 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 [...] URINE CULTURE, VZV ANTIBODY SCREEN, DISCONTINUED: vit 56-tatl-tbipw-dha (SELECT-OB + DHA) 29 mg iron-1 mg -250 mg combo pack, DISCONTINUED: vit 59-cond-nnsrw-dha (SELECT-OB + DHA) 29 mg iron-1 mg -250 mg combo pack, CANCELED: CONSULT MATERNAL MEDICINE ULTRASOUND Preferred Location: [place] Denies zika virus risk, signs and symptoms [...] OB Satellites Criss Leal FNP [address] [address] 15 [phone] Name Type Priority Associated Diagnoses Date/Ti me [...] isk Expected: 04/26/2020, , antepartum s: 04/26/2021 SARS-COV-2 IGG LAB Routine Screening for viral Ordere d: 04/26/2020 disease Health Maintenance Due Date Last Done Comments [...] on patient's age to complete this to pic documented as of this encounter Procedures Procedure Name Priority Date/Time Associated Diagnosis Comme nts POCT TEST Routine 04/26/2020 9:42 Supervision of ma gh Results for this AM CDT risk , procedure ar e in antepartum the results section. POCT URINALYSIS Routine 04/26/2020 9:41 Supervision of high Kahn esults for this AM CDT risk , [...] during faby or to 22 weeks gestation Screening for viral disease Special screening examination for unspec ified viral disease documented in this encounter Insurance Payer Benefit Plan Subscriber ID Effective Dates Phone Address Type / Group MEDICAID CHIP PERI PENDING [address]ending [place] [address] documented as of this encounter
--- OUTSIDE RECORDS SUMMARY | 2020-04-30 22:44 | XMS REPORT | Summary of Care ---
:1995 Author Organization [facility] Address [address] [place] [address] Care Team Providers Name Role Phone Samuel Leal [facility] Primary Care Provider Reason for Visit Reason Comments Results returning call Encounter Details Date Type Department Care Team Description 04/30/2020 Telephone [facility]- Samuel Leal, Yuliana serrano (returning [facility] call) [address] [facility] [address] [place] [address] [place], [place] [phone] Allergies No Known Allergiesdocumented as of this encounter (statuses as of 04/30/2020) Medications Medication Sig Dispensed Refills Start Date End Date Status azithromycin 500 mg Take 2 tablets 2 tablet 0 04/30/202004/05 Active tabletIndications: by mouth daily Chlamydia for 1 day. documented as of this encounter (statuses as of 04/30/2020) Active Problems Problem Noted Date History of miscarriage, currently 04/26/2020 Primigravida in first trimester 04/26/2020 Nausea and vomiting during prior to 22 weeks gestation 04/26/2020 Incomplete spontaneous 06/29/2015 Overview: ICD10 Diagnosis Term Mental Health Social Worker Utility Susceptible to varicella (non-immune), currently pregn ant 06/14/2015 Overview: Give pp Supervision of high risk , antepartum 015 Overview: ICD10 Diagnosis Term Mental Health Social Worker Utility Estimated Date of Delivery Comments Yes 12/19/2020 documented as of this encounter (statuses as of 04/30/2020) Resolved Problems Problem Noted Date Resolved Date Urinary tract infection, site not specified 05/17/2015 04/26/2020 Chlamydia trachomatis infection of lower genitourinary sites 05/17/2015 04/26/2020 PLANNING (Other general counseling and advice for 11/07/2014 05/17/2015 contraceptive management) Chlamydia trachomatis infection of lower genitourinary sites 11/07/2014 05/17/2015 Vaginitis and vulvovaginitis 08/09/2014 11/07/2014 Overview: ICD10 Diagnosis Term Mental Health Social Worker Utility Counseling and instruction in natural family planning to lexa id 08/09/2014 11/07/2014 documented as of this encounter (statuses as of 04/30/2020) Immunizations Name Administration Dates Next Due HEPATITIS [...] Description 05/24/2020 Routine Visit OB Satellites Criss Leal, WEIGHT CALCULATOR [address] [address] [phone] Health Maintenance Due Date Last Done Comments PAP SMEAR 2015 INFLUENZA VACCINE (#1) 2020 HPV VACCINES (2 - Female 04/17/2021 07/28/2007 Postpon ed from 01/27/2008 2-dose series) ( or ) DTaP,Tdap,and Td Vaccines (2 04/26/2021 10/05/2008 Pos tponed from 10/05/2018 - Td) (Alternative Gomez delines) Depression Screening 04/26/2021 04/26/2020, 04/26/2020 PNEUMOCOCCAL 0-64 YEARS Aged Out No longe r eligible based COMBINED SERIES on patient's age to complete this to pic documented as of this encounter Results Not on filedocumented in this encounter Insurance Payer Benefit Plan Subscriber ID Effective Dates Phone Address Type / Group MEDICAID [facility] PENDING 2020[address] [place] [address] documented as of this encounter
--- OUTSIDE RECORDS SUMMARY | 2020-04-30 22:44 | XMS REPORT | Summary of Care ---
:1995 Author Organization [facility] Address [address] [place] [address] Care Team Providers Name Role Phone Samuel Leal Primary Care Provider Reason for Visit Reason Comments Talk To Nurse Encounter Details Date Type Department Care Team Description 04/30/2020 Telephone [facility]- Ann-Marie Leal, STAFF VETERINARIAN Talk To Nurse [place] [address] [facility] [address] [facility] [place] [address] [place] [address] [phone] Allergies No Known Allergiesdocumented as of this [...] Incomplete spontaneous 06/29/2015 Overview: ICD10 Diagnosis Term Trolley Car Operator Utility Susceptible to varicella (non-immune), currently pregn ant 06/14/2015 Overview: Give pp Supervision of high risk , antepartum 015 Overview: ICD10 Diagnosis Term Trolley Car Operator Utility Estimated Date of Delivery Comments Yes [...] vulvovaginitis 08/09/2014 11/07/2014 Overview: ICD10 Diagnosis Term Trolley Car Operator Utility Counseling and instruction in natural family [...] 05/24/2020 Routine Visit OB Satellites Criss Leal, STAFF VETERINARIAN [address] [place] [address] 15 [phone] Health Maintenance Due Date Last Done Comments [...] Type / Group MEDICAID CHIP PERI PENDING 2020-[address] P[place] [address] documented as of this encounter
--- OUTSIDE RECORDS SUMMARY | 2020-04-30 22:44 | XMS REPORT | Summary of Care ---
:1994 Author Organization [facility] Address [address] [place] [address] Care Team Providers Name Role Phone Samuel Leal Primary Care Provider Reason for Visit Reason Comments New OB Visit Encounter Details Date Type Department Care Team Description 04/26/2020 Initial [facility]MP- Samuel Leal upervision of high risk , antepartum (Primary Dx); Visit AMBER Pickard History of miscarriage, currently pregna nt; [address] [place] [address] Primigrav nataly in first trimester; [address] [place] Nausea and vomiting during faby or to 22 weeks gestation; [place], [place] Screening for v iral disease [phone] Allergies No Known Allergiesdocumented as of this [...] Packet 30 Each 6 04/26/2020 Di scontinued 44-lnoa-vjmje-dha by mouth 0 (E rror) (SELECT-OB + DHA) daily. 29 mg iron-1 mg -250 mg combo packIndications: Supervision of high risk , antepartum vit Take 1 Packet 30 Each 6 04/26/2020 Di scontinued 28-vbia-nermz-dha by mouth 0 (E rror) (SELECT-OB + [...] Incomplete spontaneous 06/29/2015 Overview: ICD10 Diagnosis Term Flow Manager Utility Susceptible to varicella (non-immune), currently pregn ant 06/14/2015 Overview: Give pp Supervision of high risk , antepartum 015 Overview: ICD10 Diagnosis Term Flow Manager Utility Estimated Date of Delivery Comments [...] vulvovaginitis 08/09/2014 11/07/2014 Overview: ICD10 Diagnosis Term Flow Manager Utility Counseling and instruction in natural [...] 20s.But the USPSTF does not recommend CBE. [employer] last reviewed this educational content on 07/05/201719996786-0513 The [employer]. [address] [place] [address]. All rights reserved. This information is not [...] can make now to protect your future. [employer] last reviewed this educational content on 09/04/201819992768-2081 The [employer]. [address] [place] [address], [place] [address]. All rights reserved. This information is not [...] her child during , childbirth, and . [employer] last reviewed this educational content on 03/05/201919994261-6300 [employer], [place]. [address] [place] [address], [place] [address]. All rights reserved. This information is not intended as a substitute for professional medical care. Always follow your healthcare professional's instructions. Patient Education Clinical Breast Exam Many health organizations recommend a yearly clinical breast exam. This exam may be done by a pilot control operator, family healthcare provider, nurse practitioner, nurse foundation director, or specially trained nurse. Yearly breast exams [...] Guidelines for having clinical breast exams The [employer] [employer] recommends that [...] provider about what is best for you. [employer] last reviewed this educational content on 05/05/201719995792-5975 The [employer]. [address] [place] [address], [place] [address]. All rights reserved. This information is not [...] breast self-examination (BSE). These experts include the [employer] and the [place] [employer] Gynec[employer]. Some experts [...] benign. This means they are not cancer. [employer] last reviewed this educational content on 05/05/201719999266-4910 The [employer]. [address] [place] [address], [place] [address]. All rights reserved. This information is not [...] get this muchfrom the food you eat. [employer] last reviewed this educational content on 05/05/201719992081-5889 The [employer]. [address] [place] [address], [place] [address]. All rights reserved. This information is not intended as a substitute for professional medical care. Always follow your healthcare professional's instructions. documented in this encounter Progress Notes Samuel Leal, FOREST FIRE SPECIALIST SUPERVISOR - 04/26/2020 9:45 AM CDT Chief complaint: [...] file Gets together: Not on file Attends hoahaoism service: Not on file Active member of [...] No Hemophilia or other Blood Disorders: No Ava Chorea: No Maternal Metabolic Disorder--specify (eg. Type [...] age. Normal hair distribution. No labial lesion. Associate Product Integrity Engineer present for the exam: DRU [place] student [...] URINE CULTURE, VZV ANTIBODY SCREEN, DISCONTINUED: vit 50-dmxj-ufyfu-dha (SELECT-OB + DHA) 29 mg iron-1 mg -250 mg combo pack, DISCONTINUED: vit 03-xuhv-xaorm-dha (SELECT-OB + DHA) 29 mg iron-1 mg -250 mg combo pack, CANCELED: CONSULT MATERNAL MEDICINE ULTRASOUND Preferred Location: [place] Denies zika virus risk, signs and symptoms [...] OB Satellites Criss Leal FNP [address] [place] [address] [phone] Name Type Priority Associated Diagnoses Date/Ti me [...] isk 04/26/2020 11:00 AM CDT , antepartum SARS-COV-2 IGG LAB Routine Screening for viral 2019 2:26 PM CDT disease Name Type Priority Associated Diagnoses Order S [...] ANTIBODY SCREEN LAB Routine Supervision of high kahn isk Expected: 04/26/2020, , antepartum s: 04/26/2021 [...] POCT TEST Routine 04/26/2020 9:42 Supervision of nh gh Results for this AM CDT risk [...] Type / Group MEDICAID CHIP PERI PENDING 2020-[address] P[place] [address] documented as of this encounter
--- OUTSIDE RECORDS SUMMARY | 2020-04-30 22:44 | XMS REPORT | Summary of Care ---
:[address] [facility] Address [address] [place] [address] Care Team Providers Name Role Phone Samuel Leal INVESTIGATOR UTILITY BILL COMPLAINTS Primary Care Provider Reason for Visit Reason Comments Abnormal Lab Chlamydia+ Encounter Details Date Type Department Care Team Description 04/30/2020 Telephone [facility]- Samuel Leal, Ab normal Lab [facility] (Chlamydia+) [address] [facility] [address] [place] [address] [place], [place] [phone] [address] [phone] Allergies No Known Allergiesdocumented as of this [...] Incomplete spontaneous 06/29/2015 Overview: ICD10 Diagnosis Term Cleaning Staff Supervisor Utility Susceptible to varicella (non-immune), currently pregn ant 06/14/2015 Overview: Give pp Supervision of high risk , antepartum 015 Overview: ICD10 Diagnosis Term Cleaning Staff Supervisor Utility Estimated Date of Delivery Comments Yes [...] vulvovaginitis 08/09/2014 11/07/2014 Overview: ICD10 Diagnosis Term Cleaning Staff Supervisor Utility Counseling and instruction in natural family [...] 05/24/2020 Routine Visit OB Satellites Criss Leal, INVESTIGATOR UTILITY BILL COMPLAINTS [address] [address] 15 [phone] Health Maintenance Due Date Last Done Comments [...] Results Not on filedocumented in this encounter Visit Diagnoses Diagnosis Chlamydia - Primary Other specified chlamydial infection, in conditions classified elsewhere and of unspecified site documented in this encounter Insurance Payer Benefit Plan Subscriber ID Effective Dates Phone Address Type / Group MEDICAID CHIP PERI PENDING 2020-[address] [place] [address] documented as of this encounter
--- OUTSIDE RECORDS SUMMARY | 2020-04-30 22:44 | XMS REPORT | Continuity of Care Document ---
:[address] [facility] [place] [place] [facility] Address [address] [place] [address] Care Team Providers Name Role Phone Criss Crowder Attending Clinician Problems This patient has no known problems. Allergies, Adverse Reactions, Alerts This patient has no known allergies or adverse reactions. Medications This patient has no known medications. Procedures This patient has no known procedures. Encounters Start End Encounter Admission Attending Care Care Encounter Source Date/Time Date/Time Type Type Clinicians Facility Department ID 2020-04-30 2020-04-30 Telephone GERMAINE Leal [id number] 00:00:00 00:00:00 Samuel Kahn OPERATOR GROUND BASED AIR DEFENCE [id number] [facility] [id number] MATERNAL [id number] & CHILD [address] [place] [address] Results This patient has no known results.
--- OUTSIDE RECORDS SUMMARY | 2020-04-30 22:44 | XMS REPORT | Summary of Care ---
:1995 Author Organization [facility] Address [address] [place] [address] Care Team Providers Name Role Phone Samuel Leal HOUSE BUILDER Primary Care Provider Reason for Visit Reason Comments Abnormal Lab Chlamydia+ Encounter Details Date Type Department Care Team Description 04/30/2020 Telephone [facility]- Samuel Leal, Ab normal Lab [facility] (Chlamydia+) [address] [facility] [address] [place] [address] [place], [place] [phone] [address] [phone] Allergies No Known Allergiesdocumented as of this [...] Incomplete spontaneous 06/29/2015 Overview: ICD10 Diagnosis Term Meat Boner And Slicer Utility Susceptible to varicella (non-immune), currently pregn ant 06/14/2015 Overview: Give pp Supervision of high risk , antepartum 015 Overview: ICD10 Diagnosis Term Meat Boner And Slicer Utility Estimated Date of Delivery Comments Yes [...] vulvovaginitis 08/09/2014 11/07/2014 Overview: ICD10 Diagnosis Term Meat Boner And Slicer Utility Counseling and instruction in natural family [...] 05/24/2020 Routine Visit OB Satellites Criss Leal, HOUSE BUILDER [address] [place] [address] [phone] Health Maintenance Due Date Last Done Comments [...] Type / Group MEDICAID CHIP PERI PENDING 2020-[address] [place] [address] documented as of this encounter
--- OUTSIDE RECORDS SUMMARY | 2020-04-30 22:44 | XMS REPORT | Summary of Care ---
:1995 Author Organization [facility] Address [address] [place] [address] Care Team Providers Name Role Phone Samuel Leal SONG WRITER Primary Care Provider Reason for Visit Reason Comments Abnormal Lab Chlamydia+ Encounter Details Date Type Department Care Team Description 04/30/[address] [facility]- Samuel Leal, Ab normal Lab [facility] (Chlamydia+) [address] [facility] [address] [place] [address] [place], [place] [phone] [address] [phone] Allergies No Known Allergiesdocumented as of this [...] Incomplete spontaneous 06/29/2015 Overview: ICD10 Diagnosis Term Medical Language Specialist Utility Susceptible to varicella (non-immune), currently pregn ant 06/14/2015 Overview: Give pp Supervision of high risk , antepartum 015 Overview: ICD10 Diagnosis Term Medical Language Specialist Utility Estimated Date of Delivery Comments Yes [...] vulvovaginitis 08/09/2014 11/07/2014 Overview: ICD10 Diagnosis Term Medical Language Specialist Utility Counseling and instruction in natural family [...] 05/24/2020 Routine Visit OB Satellites Criss Leal, SONG WRITER [address] [place] [address] [phone] Health Maintenance Due Date Last Done Comments [...] Type / Group MEDICAID CHIP PERI PENDING 2020-[address] [place] [address] documented as of this encounter
== END 2020-04-30 19:43 | disposition home or self-care (01) ==
LOC: ER 17:05
DX: O20.0 Threatened abortion (principal); Z3A.01 Less than 8 weeks gestation of pregnancy
CPT/HCPCS: 36415; 76856; 80048; 81003; 81025; 84702; 85025; 86900; 86901; 99284